=== PATIENT | male | born 1950 | race Caucasian/White ===

== ENCOUNTER → 2016-10-10 | Outpatient (CLI) | payer MEDICARE ==
--- NOTE | 2016-10-10 12:55 | ECHOS ---
DATE OF SERVICE: 10/10/2016 AGE: 66Y SEX: M HT: 72" WT: 183 lbs. Protocol Alex: X Others: Stress Echo Stage: III Dur. of Exercise: 9 minutes *Heart Rate Blood Pressure *Rest: 98 Rest: 168/80 * *Max. Achieved: 157 Maximum BP: 189/91 85% PMHR: 132 100% PMHR: 155 *METS: INDICATIONS: Old AK, abnormal EKG. MEDICATIONS: Baseline rhythm is sinus mechanism, rate of 98, left axis deviation. Baseline blood pressure 168/80 mmHg. Patient exercised on Alex protocol for 9 minutes reaching peak rate of 157 beats per minute, which is equal to 101% maximum predicted heart rate; peak blood pressure 189/91 mmHg. Test was terminated secondary to fatigue. There was no chest pain. Electrocardiographic monitoring revealed no evidence of diagnostic ischemic ST deviation. Baseline echocardiogram revealed normal wall motion. At peak exercise. there was normal wall motion augmentation with no hypokinesis or dyskinesis. CONCLUSION: 1. Good exercise tolerance with normal electrocardiograph response to exercise. 2. Normal stress echocardiogram with no evidence of stress-induced ischemia.
== END | disposition home or self-care (01) ==
LOC: RADNMMAIN 11:00
PROVIDERS: ATTEND Family Medicine
DX: I25.2 Old myocardial infarction (principal); R94.31 Abnormal electrocardiogram [ECG] [EKG]
CPT/HCPCS: 93017; 93350

== ENCOUNTER 2016-11-04 15:14 | Inpatient (IN) | payer MEDICARE ==
[2016-11-04] MEDS ORDERED: SODIUM CHLORIDE 0.9% 1,000 ML IV STA (16:17)
[2016-11-04] MEDS ORDERED: ACETAMINOPHEN TAB 500 MG TAB PO STA (16:19)
[2016-11-04 16:32] LABS: Basophils # (A) 0.1 k/uL (0-0.2); Basophils % (A) 1 %; CHCM 35.7; Eosinophils % (A) 0 %; HCT 37.4 % (39.0-53.0); HDW 2.83; Luc # (Auto) 0.11; Luc % (Auto) 2; Lymphocytes # (A) 0.4 k/uL (1.0-4.8); Lymphocytes % (A) 7 %; MCH 30.3 pg (25.0-35.0); MCHC 34.7 g/dL (31.0-37.0); MCV 87.2 fL (80.0-100.0); Mean Platelet Volume 7.8; Monocytes # (A) 0.3 k/uL (0-1.0); Monocytes % (A) 4 %; Neutrophils # (A) 5.6 k/uL (1.3-7.7); Neutrophils % (A) 86 %; RBC 4.29 m/uL (4.30-5.90); RDW 13.8 % (11.5-15.5); WBC 6.5 k/uL (3.8-10.6); WBC (Perox) 6.66
--- NOTE | 2016-11-04 16:33 | ED ---
General Adult HPI - General Chief complaint: Nausea/Vomiting/Diarrhea Stated complaint: Diarrhea Time Seen by Provider: 11/04/16 15:40 Source: patient, family, RN notes reviewed Mode of arrival: ambulatory Limitations: no limitations - History of Present Illness Initial comments: Patient is a pleasant 66-year-old male presenting to the emergency Department with complaints of diarrhea and fever. Patient was on vacation at [place]. Patient was they're between 2 and 3 weeks. Symptoms started 6 days ago. Patient did have fever for the past 6 days. Diarrhea has been for the past 4 days. Fever did start before the diarrhea. Patient is having copious amounts of diarrhea. No bloody stool. Patient did have a rash that the describes as a vesicular type rash that has now scabbed over. There may have been some mild confusion. No headache or neck pain. Patient denies abdominal discomfort. No vomiting. Patient did go scuba diving one day. A abdi has lost approximately 10 pounds this week. Patient also has a history of prostate cancer and is scheduled for surgery for this next week. - Related Data Home Medications Medication Instructions Recorded Confirmed No Known Home Medications [No 11/04/16 11/04/16 Known Home Medications] Allergies Allergy/AdvReac Type Severity Reaction Status Date / Time No Known Allergies Allergy Verified 11/04/16 16:28 Review of Systems ROS Statement: Those systems with pertinent positive or pertinent negative responses have been documented in the HPI. ROS Other: All systems not noted in ROS Statement are negative. Constitutional: Reports: fever, chills Eyes: Denies: eye pain ENT: Denies: ear pain Respiratory: Denies: cough Cardiovascular: Denies: chest pain Endocrine: Reports: fatigue Gastrointestinal: Reports: diarrhea. Denies: abdominal pain Genitourinary: Denies: dysuria Musculoskeletal: Denies: back pain Skin: Reports: rash Neurological: Denies: headache Past Medical History Additional Past Medical History / Comment(s): prostate cx, hernia History of Any Multi-Drug Resistant Organisms: None Reported Past Surgical History: No Surgical Hx Reported Past Psychological History: No Psychological Hx Reported Smoking Status: Never smoker Past Alcohol Use History: None Reported Past Drug Use History: None Reported General Exam Limitations: no limitations General appearance: alert, in no apparent distress Head exam: Present: atraumatic, normocephalic Eye exam: Present: normal appearance, PERRL ENT exam: Present: normal oropharynx Neck exam: Present: normal inspection Respiratory exam: Present: normal lung sounds bilaterally Cardiovascular Exam: Present: regular rate, normal rhythm GI/Abdominal exam: Present: soft. Absent: distended, tenderness Extremities exam: Present: normal inspection. Absent: pedal edema, calf tenderness Neurological exam: Present: alert Psychiatric exam: Present: normal affect, normal mood Skin exam: Present: rash (Mild rash on the back with several small lesions with eschar) Course Vital Signs 11/04/16 15:28 Temperature 103.0 F H Pulse Rate 100 Respiratory 18 Rate Blood Pressure 121/68 O2 Sat by Pulse 97 Oximetry - Reevaluation(s) Reevaluation #1: 11/04/16 17:04 Case was discussed in detail with Dr. dunbar who will consult. He recommends Rocephin. He also requests testing for C. diff and norovirus. 11/04/16 17:21 Patient reevaluated and updated. Dr. Morales has been paged for admission. Computed tomography scan will be ordered of chest abdomen and pelvis. 11/04/16 17:22 Patient does meet sepsis criteria diagnosed at 5:21 PM. IV antibiotics have already been ordered. Admission orders placed. EKG Findings - EKG Comments: EKG Findings:: Normal sinus rhythm at 94. NM 190. QRS 98. QT 376. QTc 470. Left axis. Normal QRS. Normal ST-T. Medical Decision Making - Lab Data Result diagrams: 11/04/16 16:15 11/04/16 16:15 Lab Results 11/04/16 11/04/16 11/04/16 Range/Units 16:15 16:15 16:15 WBC 6.5 (3.8-10.6) k/uL RBC 4.29 L (4.30-5.90) m/uL Hgb 13.0 (13.0-17.5) gm/dL Hct 37.4 L (39.0-53.0) % MCV 87.2 (80.0-100.0) fL MCH 30.3 (25.0-35.0) pg MCHC 34.7 (31.0-37.0) g/dL RDW 13.8 (11.5-15.5) % Plt Count 154 (150-450) k/uL Neutrophils % 86 % Lymphocytes % 7 % Monocytes % 4 % Eosinophils % 0 % Basophils % 1 % Neutrophils # 5.6 (1.3-7.7) k/uL Lymphocytes # 0.4 L (1.0-4.8) k/uL Monocytes # 0.3 (0-1.0) k/uL Eosinophils # 0.0 (0-0.7) k/uL Basophils # 0.1 (0-0.2) k/uL PT (9.0-12.0) sec INR (<1.1) APTT (22.0-30.0) sec Sodium 122 L (137-145) mmol/L Potassium 3.3 L (3.5-5.1) mmol/L Chloride 85 L (98-107) mmol/L Carbon Dioxide 28 (22-30) mmol/L Anion Gap 9 mmol/L BUN 18 (9-20) mg/dL Creatinine 0.80 (0.66-1.25) mg/dL Est GFR (MDRD) Af Amer >60 (>60 ml/min/1.73 sqM) Est GFR (MDRD) Non-Af >60 (>60 ml/min/1.73 sqM) Glucose 113 H (74-99) mg/dL Plasma Lactic Acid Ej 1.2 (0.7-2.0) mmol/L Calcium 8.4 (8.4-10.2) mg/dL Total Bilirubin 0.7 (0.2-1.3) mg/dL AST 100 H (17-59) U/L ALT 52 (21-72) U/L Alkaline Phosphatase 55 (38-126) U/L Total Protein 6.0 L (6.3-8.2) g/dL Albumin 3.4 L (3.5-5.0) g/dL 11/04/16 Range/Units 16:15 WBC (3.8-10.6) k/uL RBC (4.30-5.90) m/uL Hgb (13.0-17.5) gm/dL Hct (39.0-53.0) % MCV (80.0-100.0) fL MCH (25.0-35.0) pg MCHC (31.0-37.0) g/dL RDW (11.5-15.5) % Plt Count (150-450) k/uL Neutrophils % % Lymphocytes % % Monocytes % % Eosinophils % % Basophils % % Neutrophils # (1.3-7.7) k/uL Lymphocytes # (1.0-4.8) k/uL Monocytes # (0-1.0) k/uL Eosinophils # (0-0.7) k/uL Basophils # (0-0.2) k/uL PT 11.0 (9.0-12.0) sec INR 1.1 (<1.1) APTT 29.9 (22.0-30.0) sec Sodium (137-145) mmol/L Potassium (3.5-5.1) mmol/L Chloride (98-107) mmol/L Carbon Dioxide (22-30) mmol/L Anion Gap mmol/L BUN (9-20) mg/dL Creatinine (0.66-1.25) mg/dL Est GFR (MDRD) Af Amer (>60 ml/min/1.73 sqM) Est GFR (MDRD) Non-Af (>60 ml/min/1.73 sqM) Glucose (74-99) mg/dL Plasma Lactic Acid Ej (0.7-2.0) mmol/L Calcium (8.4-10.2) mg/dL Total Bilirubin (0.2-1.3) mg/dL AST (17-59) U/L ALT (21-72) U/L Alkaline Phosphatase (38-126) U/L Total Protein (6.3-8.2) g/dL Albumin (3.5-5.0) g/dL Critical Care Time Critical Care Time: Yes Total Critical Care Time: 33 Disposition Clinical Impression: Hyponatremia, Infectious diarrhea, Pneumonia, Sepsis Disposition: ADMITTED IP TO THIS [facility] Condition: Serious Time of Disposition: 17:23
[2016-11-04 16:47] LABS: INR 1.1 (<1.1); Partial Thromboplastin Time 29.9 sec (22.0-30.0)
[2016-11-04 16:52] LABS: ALT 52 U/L (21-72); AST 100 U/L (17-59); Alkaline Phosphatase 55 U/L (38-126); Anion Gap 9 mmol/L; Blood Urea Nitrogen 18 mg/dL (9-20); Calcium 8.4 mg/dL (8.4-10.2); Carbon Dioxide 28 mmol/L (22-30); Chloride 85 mmol/L (98-107); Glucose 113 mg/dL (74-99); Non-African American GFR(MDRD) >60 (>60 ml/min/1.73 sqM); Potassium 3.3 mmol/L (3.5-5.1); Sodium 122 mmol/L (137-145); Total Bilirubin 0.7 mg/dL (0.2-1.3)
--- NOTE | 2016-11-04 17:09 | XR ---
EXAMINATION TYPE: XR KUB DATE OF EXAM: 11/04/2016 5:04 PM COMPARISON: NONE HISTORY: Fever TECHNIQUE: 2 views FINDINGS: There is no sign of intestinal obstruction or pneumoperitoneum. There are some gas-filled l oops of large bowel in the left upper quadrant. There is no evidence of a mass. There are no patholog ic calcifications over the kidneys. There is increased density over the left lower hemithorax consist ent with pneumonia. IMPRESSION: Nonacute abdomen. Left lower lobe pulmonary consolidation consistent with pneumonia.
--- NOTE | 2016-11-04 17:11 | XR ---
EXAMINATION TYPE: XR chest 2V DATE OF EXAM: 11/04/2016 5:03 PM COMPARISON: 01/16/2010 HISTORY: Fever TECHNIQUE: Frontal and lateral views of the chest are obtained. FINDINGS: There is a patchy area of pneumonic consolidation in the posterior left lower lobe. The ot her lung maldonado are clear. Heart is normal. Thoracic aorta is atheromatous. There are no hilar masses . There is no pleural effusion. IMPRESSION: Left lower lobe pneumonia is new compared to old exam. Normal heart.
[2016-11-04] MEDS ORDERED: RX INFO: IV CONTRAST WAS GIVEN 1 EACH MISC MISCELLANE PRN (17:21)
[2016-11-04] MEDS ORDERED: AZITHROMYCIN 500 MG in SODIUM CHLORIDE 0.9% 250 ML IVPB STA (17:23)
[2016-11-04] MEDS ORDERED: PNEUMONIA PROTOCOL UTILIZED 1 EACH MISC PO PRN (17:23)
[2016-11-04 17:37] LABS: Appearance,Urine Clear (Clear); Bilirubin,Urine Negative (Negative); Glucose,Urine (UA) Negative (Negative); Ketones,Urine Negative (Negative); Leukocyte Esterase,Urine Negative (Negative); Mucus,Urine Few /hpf; Nitrite,Urine Negative (Negative); Particle Count 10082; Protein,Urine 2+ (Negative); RBC,Urine 1 /hpf (0-5); Specific Gravity,Urine 1.019 (1.001-1.035); Squamous Epithelial Cell,Urine <1 /hpf (0-4); UA Billing (MACRO vs. MICRO) MICRO; Urobilinogen,Urine <2.0 mg/dL (<2.0); WBC,Urine 4 /hpf (0-5)
[2016-11-04] MEDS: SODIUM CHLORIDE 0.9% 1,000 ML IV SCH (18:00)
--- NOTE | 2016-11-04 19:07 | CT ---
EXAMINATION TYPE: CT angio chest DATE OF EXAM: 11/04/2016 6:55 PM COMPARISON: NONE HISTORY: Pt states of fever, vomiting, and rash. CT DLP: 2076 mGycm Automated exposure control for dose reduction was used. CONTRAST: CTA scan of the thorax is performed with IV Contrast, patient injected with 100 mL of Omnipaque 350, pulmonary embolism protocol. There are 3-D post processed images.. FINDINGS: : There is patchy pneumonic consolidation in the left lower lobe involving the superior segment and t he posterior and lateral basal segments. There is no evidence of aortic aneurysm or dissection. I see no filling defects in the pulmonary arteries. There are no hilar masses. There are a few mediastinal lymph nodes that measure up to almost 2 cm. There is no pleural effusion. The bony thorax is intact. IMPRESSION: NO EVIDENCE OF PULMONARY EMBOLISM. LEFT LOWER LOBE PNEUMONIC CONSOLIDATION CONSISTENT WITH PNEUMONIA. MILD MEDIASTINAL ADENOPATHY.
--- NOTE | 2016-11-04 19:14 | CT ---
EXAMINATION TYPE: CT abdomen pelvis w con DATE OF EXAM: 11/04/2016 6:55 PM COMPARISON: NONE HISTORY: Pt states of fever, vomiting, and rash. CT DLP: 2076 mGycm Automated exposure control for dose reduction was used. TECHNIQUE: Helical acquisition of images was performed from the lung bases through the pelvis. CONTRAST: Performed without Oral Contrast and with IV Contrast, patient injected with 100 mL of Omnipaque 350. FINDINGS: There is pneumonic consolidation in the left lower lobe. There is no pleural effusion. Liver spleen pancreas gallbladder appear normal. Bile ducts are not dilated. There is no adrenal mass . Kidneys show satisfactory contrast opacification. There is no hydronephrosis. There is no retroperi toneal adenopathy. Bladder distends smoothly. There is no sign of a pelvic mass. I see no intestinal wall thickening. There are no dilated loops. There is no sign of a hernia. Bony structures are intact . IMPRESSION: THERE IS EVIDENCE OF LEFT LOWER LOBE PNEUMONIA. NO SIGNIFICANT ABNORMALITY SEEN WITHIN THE ABDOMEN AN D PELVIS.
--- NOTE | 2016-11-05 08:05 | CONS ---
DATE OF CONSULTATION: DATE OF SERVICE: 11/04/2016 REASON FOR CONSULTATION: Possible infectious diarrhea and pneumonia. HISTORY OF PRESENT ILLNESS: The patient is a 66-year-old male who about 3 weeks ago who was on 3 week vacation on [place] where the patient did have a time-share. The patient said he was doing well there and did not have any episode of nausea, vomiting or any diarrhea. When he came back, he was doing good for the next 2 weeks, however, about a week ago the patient started having a fever and chills. He did have additionally some nausea, vomiting and diarrhea, but no blood or mucus in it with multiple loose stools. He started having a fever about 5 days ago with worsening symptoms and feeling very weak and lethargic and no energy. The patient did come to the [facility] ER where the patient had been evaluated by the physician. Initial chest area was suspicious for a left lower lobe pneumonia. The patient did have CT abdomen and pelvis, which did not show any evidence of colitis or evidence of a left lower lobe pneumonia, that was confirmed with CT angiogram which was negative for PE. The patient has been discussed with me by the ER physician. He was started on Rocephin and Zithromax and admitted to the hospital. I was asked to see the patient for further recommendation regarding antibiotic therapy. REVIEW OF SYSTEMS: CONSTITUTIONAL: Positive for weakness along with fever. EYES: No complaint. ENT: No complaint. RESPIRATORY: Mild cough and some shortness of breath. CARDIOVASCULAR: No complaint. GENITOURINARY: No complaint. GASTROINTESTINAL: As per HPI. MUSCULOSKELETAL: No complaint. INTEGUMENTARY: No complaint. PSYCHOLOGIC: No complaint. ENDOCRINE: No complaint. NEUROLOGIC: No complaint. PAST MEDICAL HISTORY: Benign prostatic hypertrophy. PAST SURGICAL HISTORY: Prostate surgery and hernia repair. SOCIAL HISTORY: No history of smoking, drinking or drug use. FAMILY HISTORY: No pertinent findings were noticed. ALLERGIES: No known drug allergies. Medications currently include the patient is on Zithromax, Rocephin, IV fluid. On examination, blood pressure is 98/61 with a pulse of 73, temperature 98.4, T-max is 103. He is 99% on room air. General description is an elderly male, lying in bed in no distress. HEENT EXAMINATION: No pallor or scleral icterus. Oral mucous membranes dry. NECK: Trachea central. There is no thyromegaly. LUNGS: Unlabored breathing. Coarse breath sounds at base. No wheeze. HEART: S1, S2. Regular rate and rhythm. ABDOMEN: Soft. No tenderness. No guarding or rigidity. EXTREMITIES: No edema of the feet. SKIN EXAMINATION: No rash or mass palpable. NEUROLOGIC: The patient is awake, alert, oriented x3. Mood and affect normal. LABS: Hemoglobin is 13 with white count 6.5 with a BUN of 18, creatinine 0.89. Potassium was 3.3. Urine has been negative. Stool for C. difficile requested, currently pending. DIAGNOSTIC IMPRESSION AND PLAN: Patient admitted to the hospital with fever, cough, diarrhea and GI symptoms in a patient who has been recently on [place] for vacation with left lower lobe pneumonia, likely community acquired with a question of possible Legionella needs to ruled out in view of significant gastrointestinal symptoms. PLAN: 1. Will request urine for legionella antigen. 2. Obtain sputum for gram stain culture and sensitivity. 3. Obtain stool culture and stool for C. difficile. 4. Rocephin 1 gram IV daily along with Zithromax. 5. Will follow up on the clinical condition and cultures to further adjust the medication if needed. Thank you for this consultation. Will follow this patient along with you. NADIR
--- NOTE | 2016-11-05 09:29 | XR ---
EXAMINATION TYPE: XR chest 2V DATE OF EXAM: 11/05/2016 9:18 AM COMPARISON: 11/04/2016 INDICATION: Previous abnormal chest, pneumonia TECHNIQUE: Single frontal view of the chest is obtained. FINDINGS: The heart size is normal. The pulmonary vasculature is normal. A left lower lobe infiltrate is present. This is similar to comparison. Some atelectasis may be along the left base. IMPRESSION: 1. Left lower lobe infiltrate. Correlate for pneumonia. Some atelectasis may also be present. Finding s are similar to comparison. Continued follow-up is recommended.
--- NOTE | 2016-11-05 10:49 | P.HPIM ---
History of Present Illness 66-year-old male was on traveling to [facility] developed weakness and fatigue. Then developed fever with diarrhea. Was evaluated in emergency room found to have pneumonia. Patient has been evaluated by infectious disease Dr Paiz. Review of Systems Constitutional: Reports fatigue Respiratory: Reports cough Gastrointestinal: Reports diarrhea Past Medical History Additional Past Medical History / Comment(s): prostate cx, hernia History of Any Multi-Drug Resistant Organisms: None Reported Past Surgical History: No Surgical Hx Reported Past Psychological History: No Psychological Hx Reported Smoking Status: Never smoker Past Alcohol Use History: None Reported Past Drug Use History: None Reported - Past Family History Mother History Unknown: Yes Family Medical History: Coronary Artery Disease (CAD) Additional Family Medical History / Comment(s): Double Bypass Father History Unknown: Yes Family Medical History: Dementia Medications and Allergies Home Medications Medication Instructions Recorded Confirmed Type No Known Home Medications [No 11/04/16 11/04/16 History Known Home Medications] Allergies Allergy/AdvReac Type Severity Reaction Status Date / Time No Known Allergies Allergy Verified 11/04/16 16:28 Physical Exam Vitals: Vital Signs Temp Pulse Pulse Resp BP BP Pulse Ox 11/05/16 08:00 85 16 11/05/16 07:00 99.4 F 85 16 119/71 95 11/04/16 20:44 98.4 F 73 16 98/61 99 11/04/16 18:06 98.5 F 79 17 95/53 97 Intake and Output 11/04/16 11/05/16 11/05/16 22:59 06:59 14:59 Intake Total 800 360 Output Total 2 2 Balance -2 800 358 Intake: IV 800 Sodium Chloride 0.9% 1, 800 000 ml @ 100 mls/hr IV . Q10H MARTHA Rx#:[id number] Oral 360 Output: Stool 2 2 Other: # Voids 3 2 - Constitutional General appearance: mild distress - EENT Eyes: PERRLA Ears: bilateral: normal - Neck Neck: normal ROM - Respiratory Respiratory: left: rales - Cardiovascular Rhythm: regular - Gastrointestinal General gastrointestinal: soft - Integumentary Integumentary: normal - Neurologic Neurologic: CNII-XII intact - Musculoskeletal Musculoskeletal: generalized weakness - Psychiatric Psychiatric: A&O x's 3, appropriate affect, intact judgment & insight Results CBC & Chem 7: 11/04/16 16:15 11/04/16 16:15 Labs: Microbiology - Last 24 Hours (Table) 11/04/16 19:30 Stool for WBCs - Final Stool 11/04/16 19:30 Stool Culture - Preliminary Stool Chest x-ray: report reviewed CT scan - abdomen: report reviewed CT scan - chest: report reviewed Thrombosis Risk Factor Assmnt - Choose All That Apply Each Risk Factor Represents 2 Points: Age 61-74 years Thrombosis Risk Factor Assessment Total Risk Factor Score: 2 Thrombosis Risk Factor Assessment Level: Low Risk Assessment and Plan Plan: Assessment Hyponatremia Infectious diarrhea recent travel to [facility] Pneumonia sepsis History of prostate cancer Plan Continue consultation with infectious disease Dr Paiz Patient on Zithromax and Rocephin
[2016-11-05] MEDS: SODIUM CHLORIDE 0.9% 1,000 ML IV SCH ×3 (11:27→18:17)
[2016-11-05] MEDS: ACETAMINOPHEN TAB 325 MG TAB PO PRN (16:14)
[2016-11-05] MEDS ORDERED: AZITHROMYCIN 500 MG TAB PO SCH (18:00)
[2016-11-05] MEDS: LEVOFLOXACIN 750 MG TAB PO SCH (18:17)
--- NOTE | 2016-11-05 21:54 | PN ---
DATE OF SERVICE: 11/05/2016 REASON FOR FOLLOWUP: Pneumonia and diarrhea. INTERVAL HISTORY: The patient is afebrile. He is feeling slightly better today, breathing comfortably. He did have some cough but did not bring up any sputum. Patient denies having chest pain. No abdominal pain or any worsening diarrhea. On examination, blood pressure 110/65 with a pulse of 92, temperature 99.4. He is 96% on room air. General description is an elderly male up in the bed in no distress. RESPIRATORY SYSTEM: Unlabored breathing. Some coarse breath sounds at the base. No wheeze. HEART: S1, S2. Regular rate and rhythm. ABDOMEN: Soft. No tenderness. EXTREMITIES: No edema of the feet. LABS: No new labs have been obtained today. Urinary legionella antigen requested; not done. DIAGNOSTIC IMPRESSION AND PLAN: Patient with a fever with left lower lobe pneumonia in a patient who did have significant gastrointestinal symptoms; question of possible legionella. Plan at this time is to continue Rocephin. Azithromycin will be switched over the Levaquin. Will try to obtain sputum. Continue supportive care.
[2016-11-06 08:34] LABS: Basophils % (A) 0 %; CH 30.7; CHCM 34.7; Eosinophils % (A) 0 %; HCT 34.8 % (39.0-53.0); HDW 3.02; HGB 11.9 gm/dL (13.0-17.5); Luc % (Auto) 2; Lymphocytes # (A) 0.6 k/uL (1.0-4.8); Lymphocytes % (A) 10 %; MCH 30.3 pg (25.0-35.0); MCHC 34.1 g/dL (31.0-37.0); MCV 88.8 fL (80.0-100.0); Mean Platelet Volume 7.8; Monocytes # (A) 0.2 k/uL (0-1.0); Monocytes % (A) 4 %; Neutrophils # (A) 4.7 k/uL (1.3-7.7); Neutrophils % (A) 84 %; RBC 3.91 m/uL (4.30-5.90); RDW 14.2 % (11.5-15.5); WBC 5.6 k/uL (3.8-10.6)
[2016-11-06 09:00] LABS: ALT 47 U/L (21-72); AST 80 U/L (17-59); Alkaline Phosphatase 62 U/L (38-126); Anion Gap 8 mmol/L; Blood Urea Nitrogen 12 mg/dL (9-20); Calcium 7.5 mg/dL (8.4-10.2); Carbon Dioxide 29 mmol/L (22-30); Chloride 93 mmol/L (98-107); Glucose 99 mg/dL (74-99); Non-African American GFR(MDRD) >60 (>60 ml/min/1.73 sqM); Potassium 3.1 mmol/L (3.5-5.1); Sodium 130 mmol/L (137-145); Total Bilirubin 0.7 mg/dL (0.2-1.3); Total Protein 5.2 g/dL (6.3-8.2)
--- NOTE | 2016-11-06 11:16 | P.PN ---
Subjective And states some improvement noted further diarrhea sodium improved improved hypokalemia noted potassium replacement ordered Objective - Vital Signs Vital signs: Vital Signs Temp 98.5 F 11/06/16 07:00 Pulse 77 11/06/16 07:00 Resp 18 11/06/16 07:00 BP 130/77 11/06/16 07:00 Pulse Ox 99 11/06/16 07:00 Intake & Output 11/05/16 11/06/16 11/06/16 18:59 06:59 18:59 Intake Total 600 800 360 Output Total 4 Balance 596 800 360 Intake: IV 800 Sodium Chloride 0.9% 1, 800 000 ml @ 100 mls/hr IV . Q10H MARTHA Rx#:[id number] Oral 600 360 Output: Stool 4 Other: Voiding Method Toilet # Voids 3 1 1 - Constitutional General appearance: Present: average body habitus - EENT Eyes: Present: PERRLA Ears: bilateral: normal - Neck Neck: Present: normal ROM - Respiratory Respiratory: left: rales - Cardiovascular Rhythm: regular - Gastrointestinal General gastrointestinal: Present: soft - Integumentary Integumentary: Present: normal - Neurologic Neurologic: Present: CNII-XII intact - Musculoskeletal Musculoskeletal: Present: generalized weakness - Psychiatric Psychiatric: Present: A&O x's 3, appropriate affect, intact judgment & insight - Labs CBC & Chem 7: 11/06/16 07:59 11/06/16 07:59 Labs: Abnormal Lab Results - Last 24 Hours (Table) 11/06/16 11/06/16 Range/Units 07:59 07:59 RBC 3.91 L (4.30-5.90) m/uL Hgb 11.9 L (13.0-17.5) gm/dL Hct 34.8 L (39.0-53.0) % Lymphocytes # 0.6 L (1.0-4.8) k/uL Sodium 130 L (137-145) mmol/L Potassium 3.1 L (3.5-5.1) mmol/L Chloride 93 L (98-107) mmol/L Calcium 7.5 L (8.4-10.2) mg/dL AST 80 H (17-59) U/L Total Protein 5.2 L (6.3-8.2) g/dL Albumin 2.7 L (3.5-5.0) g/dL - Imaging and Cardiology Chest x-ray: report reviewed Assessment and Plan Plan: Assessment Hyponatremia hypokalemia Infectious diarrhea Pneumonia/sepsis History of prostate cancer Plan Continue consultation from infectious disease patient on Rocephin and Levaquin Potassium replacement
[2016-11-06] MEDS ORDERED: Potassium Replacement Protocol 1 EACH MISC MISCELLANE PRN (11:19)
[2016-11-06] MEDS ORDERED: POTASSIUM CHLORIDE 10 MEQ in WATER FOR INJECTION 1 100ML.BAG IVPB ONE (12:00)
[2016-11-06] MEDS: POTASSIUM CHLORIDE ER 20 MEQ TAB.ER PO SCH ×4 (13:04→21:48)
[2016-11-06] MEDS: SODIUM CHLORIDE 0.9% 1,000 ML IV SCH ×2 (13:08→17:24)
[2016-11-06 16:32] VITALS: RESP 16
[2016-11-06 16:57] LABS: Magnesium 2.1 mg/dL (1.6-2.3); Potassium 3.5 mmol/L (3.5-5.1)
[2016-11-06] MEDS: LEVOFLOXACIN 750 MG TAB PO SCH (17:26)
--- NOTE | 2016-11-06 20:22 | PN ---
DATE OF SERVICE: 11/06/2016 REASON FOR FOLLOWUP: Pneumonia, left lower lobe. INTERVAL HISTORY: The patient is afebrile, has been breathing comfortably. Denies any chest pain. He did have mild cough. No abdominal pain and diarrhea has resolved. No nausea, vomiting or any diarrhea. On examination, blood pressure is 130/77 with a pulse of 77, temperature 98.5. She is 99% on room air. General description is an elderly male, up in the bed in no distress. RESPIRATORY SYSTEM: Unlabored breathing with coarse breath sounds, left base. No wheeze. HEART: S1, S2 regular rate and rhythm. ABDOMEN: Soft. No tenderness. LABS: Hemoglobin is 11.9, white count 5.6 with BUN of 12, creatinine 0.72. C. diff. has been negative. Stool cultures negative. Urine for Legionella requested; unfortunately, not done. Blood culture has been negative. DIAGNOSTIC IMPRESSION AND PLAN: Patient with left lower lobe pneumonia. Patient overall feels better and has improved. PLAN: At this time, will continue the patient on Rocephin and Levaquin, as the patient's cultures are negative and no fever. Hopefully we will finish therapy with oral antibiotics. Continue supportive care. NADIR
[2016-11-06] MEDS: ACETAMINOPHEN TAB 325 MG TAB PO PRN (21:48)
[2016-11-06 23:30] VITALS: TEMP 98.4
[2016-11-07] MEDS: POTASSIUM CHLORIDE ER 20 MEQ TAB.ER PO SCH ×5 (02:38→11:41)
[2016-11-07 08:04] VITALS: BP 125/64; PULSE 86
[2016-11-07 08:41] LABS: Anion Gap 8 mmol/L; Blood Urea Nitrogen 11 mg/dL (9-20); Carbon Dioxide 26 mmol/L (22-30); Chloride 99 mmol/L (98-107); Glucose 97 mg/dL (74-99); Non-African American GFR(MDRD) >60 (>60 ml/min/1.73 sqM); Potassium 3.5 mmol/L (3.5-5.1); Sodium 133 mmol/L (137-145)
[2016-11-07] MEDS: SODIUM CHLORIDE 0.9% 1,000 ML IV SCH (09:11)
--- NOTE | 2016-11-07 12:38 | CDI ---
In responding to this query, please exercise your independent professional judgment. The [facility] Coding Staff and Clinical Documentation Specialists appreciate your assistance in clarifying documentation, maintaining compliance with coding guidelines, accurately documenting patients condition and capturing severity of illness. The fact that a question is asked does not imply that any particular answer is desired or expected. Communication forms are a method of clarifying documentation and are not made part of the Legal Health Record. Thank you in advance for your clarification. Last Revision, May 2015 Leigh Mac [address] [address] Documentation Clarification Form Date: 11/07/2016 12:28:00 PM From: Teresa Cain RN, CCDS Admit Date: 11/04/2016 5:24:00 PM Patient Name: Lauro Pinon Visit Number: [id number] Dr. Alan Morales/ Karrie CLAROS Pneumonia was documented in your notes and requires further specificity History/Risk Factors: Recent travel to [place] with c/o fatigue, cough, diarrhea Clinical Indicators: WBC/Left shift: WNL 11/05 CXR:"Left lower lobe infiltrate. Correlate for pneumonia. Some atelectasis may also be present." 11/06 Attending Lung/Breathing assessment: "Respiratory: left: rales Treatment: Antibiotics 500mg IV Zithromax x1 dose, Ceftriaxone 1 Gm IVPB Q 24 hrs O2: Room air 1L IVF bolus followed by 100 cc/hr In order to capture the severity of condition, please clarify if the condition signifies and you are treating for: Aspiration Pneumonia, identify if: Due to solids or liquids Bacterial Pneumonia, specify causal organism (if known) Gram Negative Pneumonia Due to Strep Due to Staph Due to E. coli Other bacteria (specify) Viral Pneumonia, specify casual organism (if known) Unable to determine Link any associated conditions to the pneumonia: Influenza with secondary gram negative pneumonia Sepsis due to pneumonia Acute respiratory failure due to pneumonia Other, please specify Please document in your progress notes and discharge summary in order to capture severity of illness and risk of mortality. Include clinical findings that support your diagnosis. FYI: Press F11 to launch patient chart. Place X here if this finding has no clinical significance, is not applicable or if you are not able to provide any additional documentation. MTDD
--- NOTE | 2016-11-07 14:13 | PN ---
DATE OF SERVICE: 11/07/2016 Reason for followup is left lower lobe pneumonia, community-acquired. INTERVAL HISTORY: The patient is afebrile. He is feeling better. Breathing comfortably with minimal cough. No abdominal pain, his diarrhea has resolved. No blood or mucus in the stool. On examination, blood pressure 125/64 with a pulse of 86, temperature 98.4, he is 95% on room air. General description is elderly male up in the chair, in no distress. RESPIRATORY SYSTEM: Unlabored breathing. Mild decreased breath sounds at the left base. No wheeze. HEART: S1, S2, regular rate and rhythm. ABDOMEN: Soft, no tenderness LABS: BUN of 11, creatinine 0.67, hemoglobin is 11.9, white count of 5.6. Blood culture has been negative. Sputum obtained yesterday has been pending. DIAGNOSTIC IMPRESSION AND PLAN: Patient with left lower lobe pneumonia. Patient's fever has resolved, more likely community-acquired with a question of possible legionella. Unfortunately urine for legionella not collected. Plan was to finish therapy with oral Levaquin 750 mg for another 10 days. Script has been sent to his pharmacy. NADIR
--- NOTE | 2016-11-07 15:08 | P.DS ---
Providers Date of admission: 11/04/16 17:24 Expected date of discharge: 11/07/16 Attending physician: Alan Morales Primary care physician: Alan Morales Hospital Course: 66-year-old male was admitted to the emergency room with complaints of weakness profuse diarrhea. Was found to have pneumonia patient had recently traveled to [facility] had done some of the scuba diving. Patient was found to be hypernatremia chemically make it was corrected. Patient consultation with Dr. Paiz infectious disease. Patient will be discharged home on the Levaquin to follow up with infectious disease Assessment Hyponatremia hypokalemia corrected secondary to diarrhea pneumonia community acquired septic history prostate cancer Plan continue on [id number] mg daily follow up with Dr. Paiz family physician Dr. Morales Patient Condition at Discharge: Serious Plan - Discharge Summary New Discharge Prescriptions: Levofloxacin [Levaquin] 750 mg PO DAILY #10 tab Discharge Medication List Levofloxacin [Levaquin] 750 mg PO DAILY #10 tab 11/07/16 [Rx] Follow up Appointment(s)/Referral(s): Alan Morales MD [Primary Care Provider] - 11/13/16 10:20 am Erika Paiz MD [STAFF PHYSICIAN] - 11/14/16 11:15 am Patient Instructions/Handouts: Levofloxacin (By mouth), Hyponatremia (DC), Sepsis (GEN), Pneumonia (DC)
[2016-11-13 01:37] LABS: Cryptosporidium parvum Not detected (Not detected); Isospora belli Not detected (Not detected); Microsporidium Not detected (Not detected); Routine Ova and Parasites Not detected
== END 2016-11-07 14:55 | disposition home or self-care (01) | DRG 871 ==
LOC: EC 15:14 → 5MS5E 17:24
PROVIDERS: ADMIT Family Medicine; ATTEND Family Medicine
DX: A41.9 Sepsis, unspecified organism (principal); J18.9 Pneumonia, unspecified organism; E87.1 Hypo-osmolality and hyponatremia; A09 Infectious gastroenteritis and colitis, unspecified; E87.6 Hypokalemia; R21 Rash and other nonspecific skin eruption; Z85.46 Personal history of malignant neoplasm of prostate; Z82.49 Family history of ischemic heart disease and other diseases of the circulatory system
CPT/HCPCS: 36415; 71020; 71275; 74000; 74177; 80048; 80053; 81001; 83605; 83735; 84132; 85025; 85610; 85730; 87040; 87045; 87046; 87070; 87086; 87177; 87205; 87207; 87209; 87324; 87449; 87798; 89055; 93005

== ENCOUNTER → 2017-01-22 | Outpatient (CLI) | payer MEDICARE | END | disposition home or self-care (01) | LOC: LABWHC1 10:11 | PROVIDERS: ATTEND Urology | DX: C61 Malignant neoplasm of prostate (principal) | CPT/HCPCS: 36415; 84153 ==

== ENCOUNTER → 2017-01-27 | Outpatient (CLI) | payer MEDICARE | END | disposition home or self-care (01) | LOC: LABWHC1 13:15 | PROVIDERS: ATTEND Urology | DX: C61 Malignant neoplasm of prostate (principal) | CPT/HCPCS: 36415; 84153 ==

== ENCOUNTER → 2017-02-04 | Outpatient (CLI) | payer MEDICARE ==
--- NOTE | 2017-02-04 14:36 | NM ---
EXAMINATION TYPE: NM bone scan whole body DATE OF EXAM: 02/04/2017 COMPARISON: NONE HISTORY: Prostate carcinoma Delayed whole-body scanning was performed following the injection of 26.3 mCi Tc 99m MDP. Images acq uired 3 hours post injection. FINDINGS: There is degenerative uptake seen about the shoulders, sternoclavicular joints, lower lumbar spine, b ilateral knees and first right metatarsal phalangeal joint. Focal increased uptake is noted at the st ernomanubrial joint which may be degenerative in nature however radiographic correlation is recommend ed to exclude metastatic disease. No additional abnormal foci of increased radiotracer accumulation i dentified. IMPRESSION: 1. Radiographic correlation for sternomanubrial focus of increased accumulation. 2. Otherwise degenerative uptake as noted.
== END | disposition home or self-care (01) ==
LOC: RADNMMAIN 10:16
PROVIDERS: ATTEND Urology
DX: C61 Malignant neoplasm of prostate (principal)
CPT/HCPCS: 78306; A9503

== ENCOUNTER → 2017-02-05 | Outpatient (CLI) | payer MEDICARE ==
[2017-02-05 17:20] LABS: Blood Urea Nitrogen 17 mg/dL (9-20); Non-African American GFR(MDRD) >60 (>60 ml/min/1.73 sqM)
--- NOTE | 2017-02-05 18:15 | CT ---
EXAMINATION TYPE: CT abdomen pelvis wo/w con DATE OF EXAM: 02/05/2017 COMPARISON: 11/04/2016 HISTORY: No complaints at time of scan. Follow up prostate cancer CT DLP: 2000 mGycm Automated exposure control for dose reduction was used. TECHNIQUE: Helical acquisition of images was performed from the lung bases through the pelvis. CONTRAST: Performed with Oral Contrast and with IV Contrast, patient injected with 100 mL of Omnipaque 300. FINDINGS: Lung bases are clear. There is no pleural effusion. Liver spleen pancreas gallbladder appear normal. Bile ducts are not dilated. There is no adrenal mass. Kidneys show satisfactory contrast opacification. There is no hydronephrosi s. There is no retroperitoneal adenopathy. There is mild atheromatous change in the abdominal aorta. There is no ascites. There are surgical clips in the pelvis. Bladder distends smoothly. There is no s ign of a pelvic mass. I see no bony destructive process. I see no intestinal wall thickening. There are no dilated loops. There is no sign of a hernia. IMPRESSION: THERE IS CLEARING OF THE LEFT LOWER LOBE PNEUMONIA COMPARED TO OLD CT SCAN. PROSTATE SURGERY. NO SIGN OF RECURRENT TUMOR.
== END | disposition home or self-care (01) ==
LOC: RADCTMAIN 16:43
PROVIDERS: ATTEND Urology
DX: C61 Malignant neoplasm of prostate (principal); Z98.890 Other specified postprocedural states
CPT/HCPCS: 82565; 84520; 74178; Q9967

== ENCOUNTER → 2017-02-27 | Outpatient (CLI) | payer MEDICARE ==
--- NOTE | 2017-02-28 07:31 | MR ---
EXAMINATION TYPE: MR pelvis wo/w con DATE OF EXAM: 02/27/2017 COMPARISON: CT abdomen and pelvis February 05, [address] November 04, 2016 HISTORY: Encounter for observation for other suspected disease per order. Persistent elevated PSA [place] p[place] prostate removal surgery December 04, 2016 after prostate cancer diagnosed March 09, 2016 CONTRAST: Standard multiplanar, multisequence MRI departmental protocol utilizing 16 mL intravenous MultiHance gadolinium contrast. Imaging is performed of the pelvis. FINDINGS: Prostate gland is surgically absent. Surgical clips are seen better on recent CT versus MRI . There are some residual suspicious lymph nodes in the pelvic sidewall bilaterally. There are more n umerous but smaller lymph nodes in the left pelvis, largest measures 13 x 12 mm on axial image 21. Th e most suspicious largest lymph node is in the right pelvis on axial image 15 measuring 2.2 x 1.4 cm. Lymph nodes appear to have been present before and after surgery on comparison CT. There are some pr ominent small caliber vessels in the pelvis redemonstrated more centrally between the lower bladder a nd rectum. There is no suspicious bowel dilatation. Some diverticula are seen near the descending sigmoid coloni c junction in the left lower quadrant. There is no concerning pelvic fluid collection. Visualized por tion of bladder is felt within normal limits. Osseous structures are intact. Some facet arthropathy lower lumbar spine is seen. Small scrotal fluid collection or hydroceles, left slightly larger than right are incidentally noted. There are benign t iny bilateral groin lymph nodes redemonstrated felt stable. IMPRESSION: Suspicious pelvic adenopathy bilaterally with largest lymph node in right pelvis and more numerous lymph nodes in the left pelvis some which are not abnormally enlarged. These lymph nodes we re present before and after prostate surgery.
== END | disposition home or self-care (01) ==
LOC: RADMRIMAIN 12:18
PROVIDERS: ATTEND Radiology Radiation Oncology
DX: R59.0 Localized enlarged lymph nodes (principal); C61 Malignant neoplasm of prostate
CPT/HCPCS: 72197; A9577

== ENCOUNTER → 2017-02-27 | Outpatient (CLI) | payer MEDICARE ==
--- NOTE | 2017-02-27 09:59 | CT ---
EXAMINATION TYPE: CT chest wo con DATE OF EXAM: 02/27/2017 COMPARISON: CTA chest November 04, 2016 HISTORY: Patient denies chest complaints at time of study. Patient has a history of prostate CA. CT DLP: 319.2 mGycm. Automated Exposure Control for Dose Reduction was Utilized. TECHNIQUE: CT scan of the thorax is performed without IV contrast. FINDINGS: LUNGS: There is interval resolution of left lower lobe ill-defined consolidation. Lungs are clear c urrently. No suspicious parenchymal nodule or mass is present bilaterally. There is no pleural effusi on or pneumothorax seen bilaterally. The tracheobronchial tree is patent. MEDIASTINUM: Lack of IV contrast is noted to limit evaluation for mediastinal and especially hilar ad enopathy. There are slightly prominent but subcentimeter lymph nodes in the mediastinum. There are no definitive greater than 1 cm hilar or mediastinal lymph nodes. No cardiomegaly or pericardial effu jaquelin is seen. Coronary artery calcification is present which is noted marker for coronary artery dise ase. OTHER: Prominent diverticula are seen scattered throughout the visualized portion of the colon. There is mild multilevel spurring in the thoracic spine. IMPRESSION: Interval resolution of left lower lobe pneumonic consolidation. Stable nonspecific subcen timeter mediastinal lymph nodes. No convincing evidence of metastatic disease.
== END | disposition home or self-care (01) ==
LOC: RADCTMAIN 08:50
PROVIDERS: ATTEND Radiology Radiation Oncology
DX: Z03.89 Encounter for observation for other suspected diseases and conditions ruled out (principal); C61 Malignant neoplasm of prostate
CPT/HCPCS: 71250

== ENCOUNTER → 2017-04-10 | Outpatient (CLI) | payer MEDICARE | END | disposition home or self-care (01) | LOC: LABWHC1 10:03 | PROVIDERS: ATTEND Urology | DX: C61 Malignant neoplasm of prostate (principal) | CPT/HCPCS: 36415; 84153 ==

== ENCOUNTER → 2017-06-16 | Outpatient (CLI) | payer MEDICARE ==
--- NOTE | 2017-06-16 19:56 | BD ---
EXAMINATION TYPE: MG DEXA axial skeleton. DATE OF EXAM: 06/16/2017 COMPARISON: NONE CLINICAL HISTORY: 66-year-old male prostate cancer Height: 70 IN Weight: 193 LBS FRAX RISK QUESTIONS: Alcohol (3 or more units per day): YES Family History (Parent hip fracture): NO Glucocorticoids (More than 3mos): NO (Ex: prednisone, prednisolone, methylprednisolone, dexamethasone, and hydrocortisone). History of Fracture in Adulthood: NO Secondary Osteoporosis: 1. Type 1 Diabetes: NO 2. Hyperthyroidism: NO 3. Menopause before 45: N/A 4. Malnutrition: NO 5. Chronic liver disease: PT HAS HEP A Rheumatoid Arthritis: NO Current Tobacco Use: NO RISK FACTORS HISTORY OF: Take estrogen and/or progesterone medications: YES PT HAS STARTED HRT SHOTS EVERY 30 DAYS. IN Apr (AYAD) MEDICATIONS: Additional Medications: CALCIUM, VIT D, PT GETS HRT SHOTS EVERY 30 DAYS SINCE MAY 06 Additional History: PROSTATE CANCER WITH RADIATION EXAM MEASUREMENTS: Bone mineral densitometry was performed using the Pro Breath MD System. Bone mineral density as measured about the Lumbar spine is: ----- L1-L4(G/cm2): 1.126 T Score Values are as follows: ----- L2: -0.8 ----- L3: -0.2 ----- L4: 0.0 ----- L1-L4: -0.5 Bone mineral density BASELINE Bone mineral density about the R hip (g/cm2): 0.869 Bone mineral density about the L hip (g/cm2): 0.906 T Score values are as follows: -----R Neck: -1.2 -----L Neck: -1.0 -----R Total: -1.0 -----L Total: -0.2 Bone mineral density BASELINE IMPRESSION: Osteopenia (T Score between -2.5 and -1 as noted by T score values There is slightly increased risk of fracture and the patient may be considered for treatment. Re-Screen 2-5 years. NOTE: T-SCORE=SD OF THE YOUNG ADULT MEAN.
== END | disposition home or self-care (01) ==
LOC: RADBDWWP 12:29
PROVIDERS: ATTEND Urology
DX: C61 Malignant neoplasm of prostate (principal); M85.80 Other specified disorders of bone density and structure, unspecified site
CPT/HCPCS: 36415; 77080; 84153

== ENCOUNTER → 2017-06-16 | Outpatient (CLI) | payer MEDICARE | END | disposition home or self-care (01) | LOC: LABWHC1 09:06 | PROVIDERS: ATTEND Radiology Radiation Oncology | DX: C61 Malignant neoplasm of prostate (principal) | CPT/HCPCS: 36415; 84153 ==

== ENCOUNTER → 2017-08-07 | Outpatient (CLI) | payer MEDICARE ==
[2017-08-07 10:21] LABS: ALT 38 U/L (21-72); AST 25 U/L (17-59); Albumin 4.5 g/dL (3.5-5.0); Alkaline Phosphatase 58 U/L (38-126); Anion Gap 12 mmol/L; Blood Urea Nitrogen 15 mg/dL (9-20); Calcium 9.7 mg/dL (8.4-10.2); Carbon Dioxide 25 mmol/L (22-30); Chloride 104 mmol/L (98-107); Cholesterol 213 mg/dL (<200); Glucose 97 mg/dL (74-99); HDL Cholesterol 70 mg/dL (40-60); LDL Cholesterol,Calculated 129 mg/dL (0-99); Potassium 4.1 mmol/L (3.5-5.1); Sodium 141 mmol/L (137-145); Total Bilirubin 0.6 mg/dL (0.2-1.3); Total Protein 7.1 g/dL (6.3-8.2); Triglycerides 72 mg/dL (<150)
[2017-08-07 10:26] LABS: Basophils % (A) 1 %; Eosinophils # (A) 0.1 k/uL (0-0.7); Eosinophils % (A) 5 %; HCT 40.2 % (39.0-53.0); HGB 13.3 gm/dL (13.0-17.5); Lymphocytes # (A) 0.3 k/uL (1.0-4.8); Lymphocytes % (A) 13 %; MCHC 33.1 g/dL (31.0-37.0); MCV 90.8 fL (80.0-100.0); Mean Platelet Volume 6.3; Monocytes # (A) 0.2 k/uL (0-1.0); Monocytes % (A) 8 %; Neutrophils # (A) 1.7 k/uL (1.3-7.7); Neutrophils % (A) 69 %; Platelet Count 190 k/uL (150-450); RBC 4.43 m/uL (4.30-5.90); RDW 14.4 % (11.5-15.5); WBC 2.5 k/uL (3.8-10.6)
[2017-08-07 10:59] LABS: Prostate Specific Antigen <0.10 ng/mL (0.00-4.00)
[2017-08-07 15:13] LABS: Vitamin D 25 Hydroxy 37.9 ng/mL (30.0-100.0)
[2017-08-07 15:27] LABS: Folate, Serum 13.2 ng/mL
== END | disposition home or self-care (01) ==
LOC: LABWHC1 09:35
PROVIDERS: ATTEND Radiology Radiation Oncology
DX: C61 Malignant neoplasm of prostate (principal); D63.0 Anemia in neoplastic disease; E03.2 Hypothyroidism due to medicaments and other exogenous substances; E55.9 Vitamin D deficiency, unspecified; R53.82 Chronic fatigue, unspecified
CPT/HCPCS: 36415; 80053; 80061; 82306; 82746; 84153; 84403; 84443; 85025

== ENCOUNTER → 2017-11-25 | Outpatient (CLI) | payer MEDICARE | END | disposition home or self-care (01) | LOC: LABWHC1 09:02 | PROVIDERS: ATTEND Radiology Radiation Oncology | DX: C61 Malignant neoplasm of prostate (principal); Z90.79 Acquired absence of other genital organ(s) | CPT/HCPCS: 36415; 84153 ==

== ENCOUNTER → 2018-05-07 | Outpatient (CLI) | payer MEDICARE | END | disposition home or self-care (01) | LOC: LABWHC1 10:37 | PROVIDERS: ATTEND Nurse Practitioner | DX: C61 Malignant neoplasm of prostate (principal) | CPT/HCPCS: 36415; 84153 ==

== ENCOUNTER → 2018-11-30 | Outpatient (CLI) | payer MEDICARE | END | disposition home or self-care (01) | LOC: LABWHC1 12:52 | PROVIDERS: ATTEND Urology | DX: C61 Malignant neoplasm of prostate (principal) | CPT/HCPCS: 36415; 84153 ==

== ENCOUNTER → 2019-06-16 | Outpatient (CLI) | payer MEDICARE | END | disposition home or self-care (01) | LOC: LABWHC1 15:14 | PROVIDERS: ATTEND Surgery | DX: C61 Malignant neoplasm of prostate (principal) | CPT/HCPCS: 36415; 84153 ==

== ENCOUNTER → 2020-03-21 | Outpatient (CLI) | payer MEDICARE | END | disposition home or self-care (01) | LOC: LABWHC1 12:48 | PROVIDERS: ATTEND Surgery | DX: C61 Malignant neoplasm of prostate (principal) | CPT/HCPCS: 36415; 84153 ==

== ENCOUNTER → 2021-06-13 | Outpatient (CLI) | payer MEDICARE | END | disposition home or self-care (01) | LOC: LABWHC1 15:01 | DX: E55.9 Vitamin D deficiency, unspecified (principal) | CPT/HCPCS: 36415; 82306 ==

== ENCOUNTER → 2021-07-09 | Outpatient (CLI) | payer MEDICARE ==
--- NOTE | 2021-07-09 10:54 | BD ---
EXAMINATION TYPE: Axial Bone Density DATE OF EXAM: 07/09/2021 COMPARISON: 06.16.2017 CLINICAL HISTORY: 71 YR OLD MALE......ICD-10 CODE: M54.9 DORSALGIA Height: 70 Weight: 207 FRAX RISK QUESTIONS: 5. Chronic liver disease: HX OF HEP, A TEEN RISK FACTORS HISTORY OF: Family History of Osteoporosis: YES, FATHER WITHOUT FX Hyperparathyroidism: NO Adrenal Insufficiency: NO MEDICATIONS: Additional Medications: HX OF RADIATION FOR PROSTATE CA, VIT D, MULTIVITAMIN Additional History: HX OF PROSTATE CA, LOW VIT D EXAM MEASUREMENTS: Bone mineral densitometry was performed using the Leotus System. Bone mineral density as measured about the Lumbar spine is: ----- L1-L4(G/cm2): 1.136 T Score Values are as follows: ----- L1: -1.3 ----- L2: -0.6 ----- L3: -0.5 ----- L4: 0.7 ----- L1-L4: -0.4 Bone mineral density has: Increased 1.9% since study of: 06.16.2017 Bone mineral density about the R hip (g/cm2): 0.883 Bone mineral density about the L hip (g/cm2): 0.949 T Score values are as follows: -----R Neck: -1.5 -----L Neck: -1.0 -----R Total: -1.0 -----L Total: -0.5 Bone mineral density has: Decreased -2.0% since study of: 06.16.2017 FRAX%s: THERE IS A 8.8% CHANCE FOR A MAJOR OSTEOPOROTIC FX AND A 2.5% FOR HIPS......PROBABILITY FO R FX IN 10 YRS TIME IMPRESSION: Osteopenia (T Score between -2.5 and -1) remains present right hip. There remains slightly increased risk of fracture and the patient may be considered for treatment. Re-Screen 2-5 years. NOTE: T-SCORE=SD OF THE YOUNG ADULT MEAN.
== END | disposition home or self-care (01) ==
LOC: RADBDWWP 09:13
PROVIDERS: ATTEND Family Medicine
DX: M85.89 Other specified disorders of bone density and structure, multiple sites (principal)
CPT/HCPCS: 77080

== ENCOUNTER → 2022-04-24 | Outpatient (CLI) | payer MEDICARE | END | disposition home or self-care (01) | LOC: LABWHC1 13:35 | PROVIDERS: ATTEND Urology | DX: C61 Malignant neoplasm of prostate (principal) | CPT/HCPCS: 36415; 84153 ==

== ENCOUNTER 2022-06-07 17:49 | Emergency (ER) | payer MEDICARE ==
[2022-06-07 18:51] LABS: Basophils % (A) 1 %; Eosinophils # (A) 0.1 k/uL (0-0.7); Eosinophils % (A) 2 %; HGB 14.3 gm/dL (13.0-17.5); Lymphocytes % (A) 26 %; MCH 30.9 pg (25.0-35.0); MCHC 34.1 g/dL (31.0-37.0); MCV 90.7 fL (80.0-100.0); Mean Platelet Volume 7.2; Monocytes # (A) 0.3 k/uL (0-1.0); Monocytes % (A) 7 %; Neutrophils # (A) 2.4 k/uL (1.3-7.7); Neutrophils % (A) 62 %; Platelet Count 179 k/uL (150-450); RBC 4.63 m/uL (4.30-5.90); RDW 13.5 % (11.5-15.5)
[2022-06-07 19:03] LABS: Partial Thromboplastin Time 26.8 sec (22.0-30.0); Prothrombin Time 10.9 sec (9.0-12.0)
[2022-06-07 19:09] LABS: Albumin 4.6 g/dL (3.5-5.0); Calcium 8.7 mg/dL (8.4-10.2); Potassium 3.9 mmol/L (3.5-5.1); Total Bilirubin 0.5 mg/dL (0.2-1.3); Total Protein 6.9 g/dL (6.3-8.2)
--- NOTE | 2022-06-07 19:53 | XR ---
EXAMINATION TYPE: XR chest 2V DATE OF EXAM: 06/07/2022 7:19 PM COMPARISON: Chest radiographs from 11/05/2016. TECHNIQUE: XR chest 2V Frontal and lateral views of the chest. CLINICAL INDICATION:Male, 71 years old with history of altered mental status; FINDINGS: Lungs/Pleura: There is no evidence of pleural effusion, focal consolidation, or pneumothorax. Pulmonary vascularity: Unremarkable. Heart/mediastinum: Cardiomediastinal silhouette is unremarkable. Musculoskeletal: No acute osseous pathology. IMPRESSION: No acute cardiopulmonary disease/process.
--- NOTE | 2022-06-07 20:06 | CT ---
EXAMINATION TYPE: CT angio head neck CT DLP: 591.2 mGycm, Automated exposure control for dose reduction was used. DATE OF EXAM: 06/07/2022 7:58 PM COMPARISON: Same day CT head. CLINICAL INDICATION:Male, 71 years old with history of Neuro deficit, acute, stroke suspected; TECHNIQUE: Axially acquired helical CT angiogram of the head and neck was obtained with contrast. Axi al images are supplemented with 3D reconstructions which [facility] NASCET criteria used. Contrast used:65ml mL of Isovue 370 with IV Contrast, Oral contrast used: None. FINDINGS: CTA HEAD: No evidence of acute intracranial hemorrhage, mass effect, or midline shift. The ventricles, sulci, a nd cisterns are unremarkable. The visualized portions of the internal carotid arteries, middle cerebral arteries, anterior cerebral arteries, and posterior cerebral arteries are patent. The basilar and vertebral arteries are patent. CTA NECK: Right Carotid System: The common carotid artery and external carotid artery are patent. The carotid bifurcation demonstrate s no evidence of hemodynamically significant stenosis. The remaining portions of the internal carotid artery demonstrate normal size without significant narrowing. Left Carotid System: The common carotid artery and external carotid artery are patent. The carotid bifurcation demonstrate s no evidence of hemodynamically significant stenosis. The remaining portions of the internal carotid artery demonstrate normal size without significant narrowing. Vertebral arteries are patent without evidence hemodynamically significant stenosis. There is a three-vessel aortic arch. The origins of the great vessels are patent. No evidence of hemo dynamically significant stenosis. Scattered mediastinal prominent lymph nodes which are not enlarged measuring up to 10 mm in short axi s. IMPRESSION: 1. No evidence of dissection of the cervical internal carotid arteries or vertebral arteries or any e vidence of significant stenosis at the carotid bifurcations. 2. No evidence of intracranial high-grade stenosis or intracranial aneurysm.
--- NOTE | 2022-06-07 20:06 | CT ---
EXAMINATION TYPE: CT brain wo con CT DLP: 1237.6 mGycm, Automated exposure control for dose reduction was used. DATE OF EXAM: 06/07/2022 7:39 PM COMPARISON: Same day and she'll head neck.. CLINICAL INDICATION:Male, 71 years old with history of Neuro deficit, acute, stroke suspected, TECHNIQUE: Brain: Axial CT images of the brain were obtained with coronal and sagittal reformats created and rev iewed. Contrast used: None. Oral contrast used: None. FINDINGS: Brain: Extra-axial spaces: No abnormal extra-axial fluid collections. Ventricular system: Within normal limits Cerebral parenchyma: No acute intraparenchymal hemorrhage or mass effect. The macedo-white junction is well differentiated. Scattered hypoattenuating areas are seen within the white matter. Cerebellum: Unremarkable. Mass effect: No evidence of midline shift. Intracranial vasculature: unremarkable Soft tissues: Normal. Calvarium/osseous structures: No depressed skull fracture. Paranasal sinuses and mastoid air cells: Mild scattered paranasal sinus disease. Visualized orbits: Orbital contents are intact. IMPRESSION: 1. No acute intracranial process. 2. Nonspecific white matter changes, likely secondary to chronic small vessel ischemic disease.
--- NOTE | 2022-06-07 20:07 | ED ---
Neuro HPI - General Chief Complaint: Neuro Symptoms/Deficit Stated Complaint: left side tingling, dizziness Time Seen by Provider: 06/07/22 18:00 Source: patient Mode of arrival: ambulatory Limitations: no limitations - History of Present Illness Is the patient presenting with stroke symptoms?: Yes Initial Comments: 8-year-old male with a history of A. fib, prostate cancer who presents to the emergency department with reported paresthesias in his left arm and left leg. States that they started 1 hour prior to hospital arrival. Paresthesias involve the length of the arm and leg. He denies any facial numbness. No speech difficulties. No headache or visual changes. He denies any weakness in his extremities. He is right-hand dominant. He denies any chest pain or shortness of breath. Previous history of stroke. He does have a history of A. fib however is not on any anticoagulation. This was not recommended by his primary care physician when he was diagnosed with A. fib. Denies any recent head trauma. No fevers, chills or cough. No other alleviating, precipitating or modifying factors - Related Data Home Medications: Previous Rx's Medication Instructions Recorded levoFLOXacin [Levaquin] 750 mg PO DAILY #10 tab 11/07/16 Allergies/Adverse Reactions: Allergies Allergy/AdvReac Type Severity Reaction Status Date / Time No Known Allergies Allergy Verified 06/07/22 18:00 Review of Systems ROS Statement: Those systems with pertinent positive or pertinent negative responses have been documented in the HPI. ROS Other: All systems not noted in ROS Statement are negative. General Exam Limitations: no limitations General appearance: alert, in no apparent distress Head exam: Present: atraumatic, normocephalic, normal inspection Eye exam: Present: normal appearance, PERRL, EOMI. Absent: scleral icterus, conjunctival injection, periorbital swelling ENT exam: Present: normal exam, mucous membranes moist Neck exam: Present: normal inspection. Absent: tenderness, meningismus, lymphad enopathy Respiratory exam: Present: normal lung sounds bilaterally. Absent: respiratory distress, wheezes, rales, rhonchi, stridor Cardiovascular Exam: Present: regular rate, normal rhythm, normal heart sounds. Absent: systolic murmur, diastolic murmur, rubs, gallop, clicks GI/Abdominal exam: Present: soft, normal bowel sounds. Absent: distended, tenderness, guarding, rebound, rigid Extremities exam: Present: normal inspection, full ROM, normal capillary refill. Absent: tenderness, pedal edema, joint swelling, calf tenderness Back exam: Present: normal inspection Neurological exam: Present: alert, oriented X3, CN II-XII intact Psychiatric exam: Present: normal affect, normal mood Skin exam: Present: warm, dry, intact, normal color. Absent: rash Stroke MDM - Lab Data Result diagrams: 06/07/22 18:40 06/07/22 18:40 Lab Results 06/07/22 06/07/22 06/07/22 Range/Units 18:40 18:40 18:40 WBC 4.0 (3.8-10.6) k/uL RBC 4.63 (4.30-5.90) m/uL Hgb 14.3 (13.0-17.5) gm/dL Hct 42.0 (39.0-53.0) % MCV 90.7 (80.0-100.0) fL MCH 30.9 (25.0-35.0) pg MCHC 34.1 (31.0-37.0) g/dL RDW 13.5 (11.5-15.5) % Plt Count 179 (150-450) k/uL MPV 7.2 Neutrophils % 62 % Lymphocytes % 26 % Monocytes % 7 % Eosinophils % 2 % Basophils % 1 % Neutrophils # 2.4 (1.3-7.7) k/uL Lymphocytes # 1.0 (1.0-4.8) k/uL Monocytes # 0.3 (0-1.0) k/uL Eosinophils # 0.1 (0-0.7) k/uL Basophils # 0.0 (0-0.2) k/uL PT 10.9 (9.0-12.0) sec INR 1.0 (<1.2) APTT 26.8 (22.0-30.0) sec Sodium 138 (137-145) mmol/L Potassium 3.9 (3.5-5.1) mmol/L Chloride 105 (98-107) mmol/L Carbon Dioxide 21 L (22-30) mmol/L Anion Gap 12 mmol/L BUN 20 (9-20) mg/dL Creatinine 1.01 (0.66-1.25) mg/dL Est GFR (CKD-EPI)AfAm 87 (>60 ml/min/1.73 sqM) Est GFR (CKD-EPI)NonAf 75 (>60 ml/min/1.73 sqM) Glucose 93 (74-99) mg/dL Calcium 8.7 (8.4-10.2) mg/dL Total Bilirubin 0.5 (0.2-1.3) mg/dL AST 24 (17-59) U/L ALT 19 (4-49) U/L Alkaline Phosphatase 66 (38-126) U/L Troponin I (0.000-0.034) ng/mL Total Protein 6.9 (6.3-8.2) g/dL Albumin 4.6 (3.5-5.0) g/dL 06/07/22 Range/Units 18:40 WBC (3.8-10.6) k/uL RBC (4.30-5.90) m/uL Hgb (13.0-17.5) gm/dL Hct (39.0-53.0) % MCV (80.0-100.0) fL MCH (25.0-35.0) pg MCHC (31.0-37.0) g/dL RDW (11.5-15.5) % Plt Count (150-450) k/uL MPV Neutrophils % % Lymphocytes % % Monocytes % % Eosinophils % % Basophils % % Neutrophils # (1.3-7.7) k/uL Lymphocytes # (1.0-4.8) k/uL Monocytes # (0-1.0) k/uL Eosinophils # (0-0.7) k/uL Basophils # (0-0.2) k/uL PT (9.0-12.0) sec INR (<1.2) APTT (22.0-30.0) sec Sodium (137-145) mmol/L Potassium (3.5-5.1) mmol/L Chloride (98-107) mmol/L Carbon Dioxide (22-30) mmol/L Anion Gap mmol/L BUN (9-20) mg/dL Creatinine (0.66-1.25) mg/dL Est GFR (CKD-EPI)AfAm (>60 ml/min/1.73 sqM) Est GFR (CKD-EPI)NonAf (>60 ml/min/1.73 sqM) Glucose (74-99) mg/dL Calcium (8.4-10.2) mg/dL Total Bilirubin (0.2-1.3) mg/dL AST (17-59) U/L ALT (4-49) U/L Alkaline Phosphatase (38-126) U/L Troponin I <0.012 (0.000-0.034) ng/mL Total Protein (6.3-8.2) g/dL Albumin (3.5-5.0) g/dL - Medical Decision Making Upon arrival patient was placed into room 8. A thorough history and physical exam was performed. NIH is performed. Patient does have a score of 1 because of subjective paresthesias. IV is established and laboratory studies were conducted. Patient does go for a CT of his head as well as CT angiography. Laboratory studies are reviewed and within normal limits. CT as well as CT a ngiography of the brain are reviewed by myself. No acute intracranial process. No acute occlusion. I did discuss results with the patient. It did recommend overnight observation for neurology consultation however patient refused and states he would prefer to follow up with his primary care doctor for further treatment. Patient is discharged home. Instructed to call and make an appointment on Friday. Should return to the emergency room for any new or worsening symptoms. Patient was agreeable to treatment plan he was discharged home in stable condition EKG demonstrates A. fib with rate of 92. QRS 85. QTC of 403. No acute ST segment elevations or depressions 06/07/22 20:06 Past Medical History Additional Past Medical History / Comment(s): prostate cx, hernia, legonella. Afib. History of Any Multi-Drug Resistant Organisms: None Reported Past Surgical History: No Surgical Hx Reported Past Psychological History: No Psychological Hx Reported Smoking Status: Never smoker Past Alcohol Use History: None Reported Past Drug Use History: None Reported - Past Family History Mother History Unknown: Yes Family Medical History: Coronary Artery Disease (CAD) Additional Family Medical History / Comment(s): Double Bypass Father History Unknown: Yes Family Medical History: Dementia Course Vital Signs 06/07/22 06/07/22 17:56 20:38 Temperature 97.8 F 98.2 F Pulse Rate 110 H 70 Respiratory 20 14 Rate Blood Pressure 164/93 127/98 O2 Sat by Pulse 98 97 Oximetry Disposition Clinical Impression: Paresthesias, Afib Disposition: HOME SELF-CARE Condition: Stable Instructions (If sedation given, give patient instructions): Paresthesia (ED) Additional Instructions: Please follow-up with your primary care doctor for further evaluation and treatment of your symptoms. I recommend an echo, MRI of your brain and possible neurology consultation. Take a full dose aspirin daily. Return to the emergency room should you have any new or worsening symptoms Is patient prescribed a controlled substance at d/c from ED?: No Referrals: Alan Morales MD [Primary Care Provider] - 1-2 days Time of Disposition: 21:03
[2022-06-07 20:39] VITALS: BP 127/98; PULSE 70; RESP 14; TEMP 98.2
== END 2022-06-07 21:17 | disposition home or self-care (01) ==
LOC: EC 17:49
DX: R20.2 Paresthesia of skin (principal); I48.91 Unspecified atrial fibrillation
CPT/HCPCS: 36415; 93005; 80053; 84484; 85025; 85610; 85730; 71046; 70496; 70450; 70498; 99284; Q9967

== ENCOUNTER 2022-06-17 09:25 | Emergency (ER) | payer MEDICARE ==
[2022-06-17 09:40] VITALS: RESP 18; TEMP 98
--- NOTE | 2022-06-17 10:04 | ED ---
Extremity Problem HPI - General Chief complaint: Extremity Problem,Nontraumatic Stated complaint: Pain in Thigh Time Seen by Provider: 06/17/22 09:46 Source: patient, RN notes reviewed Mode of arrival: ambulatory Limitations: no limitations - History of Present Illness Initial comments: 71-year-old male presents emergency from chief complaint left leg pain, tingling. Patient states that he had the symptoms last week 20 cm from was found to have A. fib he states that his left leg without looked that he continues to have pain in his left thigh and tingling down into the leg. Patient has any bowel, bladder incontinence or retention of saddle anesthesias. Patient states he has no significant lumbar back pain. Patient has no dysuria no abdominal pain, to chest pain. Patient states his heart rate has been anywhere from 80s to 1 teens. He states is close monitoring this at home. Patient was discharged from the ER on eliquis with follow-up with Dr. Mooney cardiology. Patient has no history DVT but has concerns today have DVT. He states occasionally with his heart rate he feels short of breath but has no complaints of that currently. - Related Data Home Medications Medication Instructions Recorded Confirmed Apixaban [Eliquis] 5 mg PO BID 06/17/22 06/17/22 Previous Rx's Medication Instructions Recorded predniSONE 50 mg PO DAILY #5 tab 06/17/22 Allergies Allergy/AdvReac Type Severity Reaction Status Date / Time No Known Allergies Allergy Verified 06/17/22 12:33 Review of Systems ROS Statement: Those systems with pertinent positive or pertinent negative responses have been documented in the HPI. ROS Other: All systems not noted in ROS Statement are negative. Past Medical History Additional Past Medical History / Comment(s): prostate cx, hernia, legonella. Afib. History of Any Multi-Drug Resistant Organisms: None Reported Past Surgical History: No Surgical Hx Reported Past Psychological History: No Psychological Hx Reported Smoking Status: Never smoker Past Alcohol Use History: None Reported Past Drug Use History: None Reported - Past Family History Mother History Unknown: Yes Family Medical History: Coronary Artery Disease (CAD) Additional Family Medical History / Comment(s): Double Bypass Father History Unknown: Yes Family Medical History: Dementia General Exam Limitations: no limitations General appearance: alert, in no apparent distress Head exam: Present: atraumatic, normocephalic, normal inspection Neck exam: Present: normal inspection. Absent: tenderness, meningismus, lymphadenopathy Respiratory exam: Present: normal lung sounds bilaterally. Absent: respiratory distress, wheezes, rales, rhonchi, stridor Cardiovascular Exam: Present: normal heart sounds. Absent: regular rate, normal rhythm, systolic murmur, diastolic murmur, rubs, gallop, clicks Extremities exam: Present: other (Lower extremity strength, color, warmth equal bilaterally pulses are equal and palpable Reflux and 2 seconds) Neurological exam: Present: alert Skin exam: Present: warm, dry, intact, normal color. Absent: rash Course Vital Signs 06/17/22 06/17/22 09:36 11:47 Temperature 98 F Pulse Rate 98 91 Respiratory 18 18 Rate Blood Pressure 130/89 120/85 O2 Sat by Pulse 96 98 Oximetry Medical Decision Making - Medical Decision Making 71-year-old male present emergency department for left leg pain. Patient had contusions a DVT ultrasound was performed and shows negative for acute DVT. Patient has arterial pulses dorsal penile's and posterior tibialis that her normal cap refill equal color equal warmth patient's x-ray does not show significant changes mild arthritic changes of the lumbar spine I do believe this is related to radicular symptoms. At a very lengthy discussion with patient and patient's is strong concerns for DVT. Again Ultram was negative patient is currently on L Felix which be the treatment. There is no arterial involvement. Patient's symptoms probably related to radicular symptoms patient was started on prednisone. Patient had a completely normal lab work is prior ER visit Disposition Clinical Impression: Lumbar radicular pain, Leg pain Disposition: HOME SELF-CARE Condition: Stable Instructions (If sedation given, give patient instructions): Leg Pain (ED), Lumbar Radiculopathy (ED) Additional Instructions: Please return to the Emergency Department if symptoms worsen or any other concerns. Prescriptions: predniSONE 50 mg PO DAILY #5 tab Is patient prescribed a controlled substance at d/c from ED?: No Referrals: Alan Morales MD [Primary Care Provider] - 1-2 days Time of Disposition: 12:53
[2022-06-17 11:51] VITALS: BP 120/85; PULSE 91
--- NOTE | 2022-06-17 11:56 | US ---
EXAMINATION TYPE: US venous doppler duplex LE LT DATE OF EXAM: 06/17/2022 11:48 AM COMPARISON: NONE CLINICAL HISTORY: pain. SIDE PERFORMED: Left TECHNIQUE: The lower extremity deep venous system is examined utilizing real time linear array sonog gloria with graded compression, doppler sonography and color-flow sonography. VESSELS IMAGED: Common Femoral Vein Deep Femoral Vein Greater Saphenous Vein * Femoral Vein Popliteal Vein Small Saphenous Vein * Proximal Calf Veins (* superficial vessels) Grayscale, color doppler, spectral doppler imaging performed of the deep veins of the left lower extr emity. There is normal flow, compressibility, vascular waveforms. Left Leg: Negative for DVT IMPRESSION: No ultrasound evidence for acute DVT in the left lower extremity.
--- NOTE | 2022-06-17 12:13 | XR ---
EXAMINATION TYPE: XR lumbosacral spine min 4V DATE OF EXAM: 06/17/2022 CLINICAL HISTORY: Low back pain. TECHNIQUE: Frontal, lateral, and oblique images of the lumbar spine are obtained. COMPARISON: None FINDINGS: There are 5 lumbar type vertebral bodies identified. The lumbar spine shows satisfactory alignment without evidence of acute fracture or dislocation. Vertebral body heights and disk space he ights are within normal limits. The oblique images appear within normal limits. Mild overlying parker rial vascular calcification is present. IMPRESSION: As above.
== END 2022-06-17 13:12 | disposition home or self-care (01) ==
LOC: EC 09:25
DX: M54.16 Radiculopathy, lumbar region (principal); I48.91 Unspecified atrial fibrillation; Z79.01 Long term (current) use of anticoagulants
CPT/HCPCS: 72110; 99284

== ENCOUNTER → 2022-07-11 | Outpatient (CLI) | payer MEDICARE ==
[2022-07-11 19:07] LABS: ALT 16 U/L (10-49); AST 20 U/L (14-35); LDL Cholesterol,Calculated 139.8 mg/dL (0.0-131.0); VLDL Calculation 13.06 mg/dL (5.00-40.00)
== END | disposition home or self-care (01) ==
LOC: LABWHC1 09:38
PROVIDERS: ATTEND Internal Medicine Interventional Cardiology
DX: E78.2 Mixed hyperlipidemia (principal); I48.11 Longstanding persistent atrial fibrillation
CPT/HCPCS: 36415; 80061; 84443; 84450; 84460

== ENCOUNTER → 2023-05-01 | Outpatient (CLI) | payer MEDICARE ==
[2023-05-01 09:53] LABS: HCT 42.3 % (39.0-53.0); HGB 13.8 gm/dL (13.0-17.5); MCH 30.6 pg (25.0-35.0); MCHC 32.5 g/dL (31.0-37.0); MCV 94.1 fL (80.0-100.0); Mean Platelet Volume 6.9; Platelet Count 161 k/uL (150-450); RBC 4.49 m/uL (4.30-5.90); RDW 13.8 % (11.5-15.5); WBC 3.9 k/uL (3.8-10.6)
[2023-05-01 09:59] LABS: INR 1.1 (<1.2); Prothrombin Time 11.1 sec (9.0-12.0)
[2023-05-01 10:21] LABS: African American GFR (CKD) >90 (>60 ml/min/1.73 sqM); Anion Gap 11 mmol/L; Blood Urea Nitrogen 17 mg/dL (9-20); Calcium 9.2 mg/dL (8.4-10.2); Carbon Dioxide 26 mmol/L (22-30); Chloride 102 mmol/L (98-107); Glucose 87 mg/dL (74-99); Non-African American GFR(CKD) >90 (>60 ml/min/1.73 sqM); Potassium 4.5 mmol/L (3.5-5.1); Sodium 139 mmol/L (137-145)
[2023-05-01 16:53] LABS: Prostate Specific Antigen <0.01 ng/mL (0.000-6.500)
== END | disposition home or self-care (01) ==
LOC: LABWHC1 08:30
PROVIDERS: ATTEND Urology
DX: R97.20 Elevated prostate specific antigen [PSA] (principal)
CPT/HCPCS: 36415; 80048; 84153; 85027; 85610

== ENCOUNTER → 2024-04-26 | Outpatient (CLI) | payer MEDICARE | END | disposition home or self-care (01) | LOC: LABWHC1 10:52 | PROVIDERS: ATTEND Urology | DX: R97.20 Elevated prostate specific antigen [PSA] (principal) | CPT/HCPCS: 36415; 84153 ==

== ENCOUNTER → 2024-06-08 | Outpatient (CLI) | payer MEDICARE ==
[2024-06-08 12:02] LABS: ALT 20 U/L (10-49); AST 30 U/L (14-35); Albumin 4.4 g/dL (3.8-4.9); Alkaline Phosphatase 72 U/L (41-126); BUN/Creat Ratio 15.11 Ratio (12.00-20.00); Blood Urea Nitrogen 13.6 mg/dL (9.0-27.0); Calcium 9.1 mg/dL (8.7-10.3); Carbon Dioxide 25.9 mmol/L (21.6-31.8); Chloride 105 mmol/L (96-109); Chol/HDL Ratio 2.86 Ratio; Globulin 2.2 g/dL (1.6-3.3); Glucose 103 mg/dL (70-110); LDL Cholesterol,Calculated 140.6 mg/dL (0.0-131.0); Potassium 4.2 mmol/L (3.5-5.5); Sodium 141 mmol/L (135-145); Total Bilirubin 0.6 mg/dL (0.3-1.2); Total Protein 6.6 g/dL (6.2-8.2); VLDL Calculation 8.18 mg/dL (5.00-40.00)
[2024-06-08 14:26] LABS: Basophils # (A) 0.01 X 10*3/uL (0.00-0.10); Basophils % (A) 0.3 %; Eosinophils # (A) 0.13 X 10*3/uL (0.04-0.35); Eosinophils % (A) 3.3 %; HCT 40.3 % (39.6-50.0); HGB 13.4 g/dL (13.0-17.0); Lymphocytes # (A) 1.09 X 10*3/uL (0.90-5.00); Lymphocytes % (A) 27.6 %; MCH 30.9 pg (27.0-32.0); MCHC 33.3 g/dL (32.0-37.0); MCV 92.9 FL (80.0-97.0); Mean Platelet Volume 9.8 FL (9.5-12.2); Monocytes # (A) 0.37 X 10*3/uL (0.20-1.00); Monocytes % (A) 9.4 %; NRBC Per 100 WBC 0 X 10*3/uL (0.00-0.01); Neutrophils # (A) 2.34 X 10*3/uL (1.80-7.70); Neutrophils % (A) 59.1 %; Platelet Count 184 X 10*3/uL (140-440); RBC 4.34 X 10*6/uL (4.40-5.60); RDW 13.9 % (11.5-14.5); WBC 3.95 X 10*3/uL (4.50-10.00)
== END | disposition home or self-care (01) ==
LOC: LABWHC1 07:39
PROVIDERS: ATTEND Family Medicine
DX: E78.5 Hyperlipidemia, unspecified (principal); R79.9 Abnormal finding of blood chemistry, unspecified
CPT/HCPCS: 36415; 80053; 80061; 82652; 83090; 84443; 85025; 86141

== ENCOUNTER → 2024-07-28 | Outpatient (CLI) | payer MEDICARE ==
--- NOTE | 2024-07-28 16:04 | CT ---
EXAMINATION TYPE: CT abdomen pelvis wo con DATE OF EXAM: 07/28/2024 COMPARISON: 02/05/2017 CLINICAL INDICATION: Male, 74 years old with history of R31.9 BLOOD IN URINE; PHH, HEMATURIA X3 DAYS TECHNIQUE: CT scan of the abdomen and pelvis is performed without oral or IV contrast. CT DLP: [address] CTDI: mGy Automated exposure control for dose reduction was used. FINDINGS: Within the limitations of a non-contrast study, the following observations are made. The lungs are clear. Gallbladder is normal and there is no gallstone, wall thickening, pericholecystic fluid or distention . There is no biliary ductal dilatation. There is no organomegaly of the liver, pancreas, spleen or adrenal glands. There are no renal calcifications or hydronephrosis. The caliber of the abdominal aorta is normal and there is no retroperitoneal adenopathy or hemorrhage . The bowel loops are normal in caliber is no evidence of obstruction. No inflammatory changes are iden tified in the mesentery and there is no free intraperitoneal air or fluid. There is no pelvic mass, free fluid, abscess or adenopathy. 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 The osseous structures and soft tissues are unremark able. IMPRESSION: Surgical absence of the prostate gland. No other significant abnormality seen. There are no renal morenita cifications, urinary bladder calcifications or hydronephrosis. [facility], , 07/28/2024 4:01 PM
== END | disposition home or self-care (01) ==
LOC: RADCTMAIN 13:24
PROVIDERS: ATTEND Family Medicine
DX: R31.9 Hematuria, unspecified (principal); Z90.79 Acquired absence of other genital organ(s)
CPT/HCPCS: 74176

== ENCOUNTER → 2024-12-28 | Outpatient (CLI) | payer MEDICARE | END | disposition home or self-care (01) | LOC: LABWHC1 09:42 | PROVIDERS: ATTEND Dentist | DX: E55.9 Vitamin D deficiency, unspecified (principal) | CPT/HCPCS: 36415; 82306 ==